=== PATIENT | male | born 1985 | race Caucasian/White ===

== ENCOUNTER 2019-11-07 23:38 | Inpatient (IN) | payer MEDICAID, OTHER ==
--- NOTE | 2019-11-08 00:20 | ED ---
Psych HPI - General Chief Complaint: Psychiatric Symptoms Stated Complaint: Mental Health Time Seen by Provider: 11/07/19 23:52 Source: patient, police Mode of arrival: ambulatory - History of Present Illness Initial Comments: Jass Arevalo is a 34-year-old male with a history of depression for which she has been on Effexor, gabapentin, and Remeron at night. Patient states that all of his medications were in the vehicle belonging to a woman named Pat who has had a falling out with so he doesn't have access to his medications. He is been drinking alcohol this evening and states that he hates himself and wants to . - Related Data Previous Rx's Medication Instructions Recorded Atorvastatin [Lipitor] 40 mg PO HS #30 tab 11/08/19 Allergies Allergy/AdvReac Type Severity Reaction Status Date / Time No Known Allergies Allergy Verified 11/07/19 23:46 Review of Systems ROS Statement: Those systems with pertinent positive or pertinent negative responses have been documented in the HPI. ROS Other: All systems not noted in ROS Statement are negative. Past Medical History Past Medical History: No Reported History History of Any Multi-Drug Resistant Organisms: None Reported Past Surgical History: Orthopedic Surgery Additional Past Surgical History / Comment(s): lt kidney removed Past Psychological History: Anxiety, Depression Smoking Status: Current every day smoker Past Alcohol Use History: Occasional Past Drug Use History: None Reported - Past Family History Father Additional Family Medical History / Comment(s): MS Mother Additional Family Medical History / Comment(s): Bipolar disorder General Exam - General Exam Comments Initial Comments: Physical Exam GENERAL: Patient is well-developed and well-nourished. Patient is nontoxic and well-hydrated and is in no distress. HENT: Normocephalic, Atraumatic. EYES: PERRL, EOMI PULMONARY: Unlabored respirations. CARDIOVASCULAR: RRR Warm and well perfused extremities ABDOMEN: Non-distended SKIN: No rashes or bruising : Deferred NEUROLOGIC: Alert and oriented Normal speech Normal gait MUSCULOSKELETAL: Moving all extremities with no apparent injury PSYCHIATRIC: Tearful, crying, suicidal thoughts, depression Limitations: no limitations Course Vital Signs 11/07/19 23:41 Temperature 97.8 F Pulse Rate 108 H Respiratory 20 Rate Blood Pressure 113/73 O2 Sat by Pulse 99 Oximetry Medical Decision Making - Medical Decision Making She was seen and evaluated upon arrival in the emergency department. Patient is crying and tearful, he does admit to being intoxicated but states that he felt he eats himself and he wants to . Upon sobriety the patient was evaluated by EPS and was willing to sign in voluntarily for psychiatric evaluation. - Lab Data Result diagrams: 11/08/19 09:10 11/08/19 09:10 Lab Results 11/07/19 Range/Units 23:55 Urine Opiates Screen Not Detected (NotDetected) Ur Oxycodone Screen Not Detected (NotDetected) Urine Methadone Screen Not Detected (NotDetected) Ur Propoxyphene Screen Not Detected (NotDetected) Ur Barbiturates Screen Not Detected (NotDetected) U Tricyclic Antidepress Not Detected (NotDetected) Ur Phencyclidine Scrn Not Detected (NotDetected) Ur Amphetamines Screen Not Detected (NotDetected) U Methamphetamines Scrn Not Detected (NotDetected) U Benzodiazepines Scrn Not Detected (NotDetected) Urine Cocaine Screen Not Detected (NotDetected) U Marijuana (THC) Screen Not Detected (NotDetected) Disposition Clinical Impression: Depression, Suicidal ideation Disposition: TRANSFER TO PSYCH HOSP/UNIT Condition: Stable Is patient prescribed a controlled substance at d/c from ED?: No
[2019-11-08 00:49] LABS: Amphetamine Screen,Urine Not Detected (NotDetected); Barbiturate Screen,Urine Not Detected (NotDetected); Benzodiazepines Screen,Urine Not Detected (NotDetected); Cocaine Screen,Urine Not Detected (NotDetected); Methadone Screen, Urine Not Detected (NotDetected); Opiate Screen,Urine Not Detected (NotDetected); Oxycodone Screen, Urine Not Detected (NotDetected); Phencyclidine Screen,Urine Not Detected (NotDetected); Tricyclic Antidepressant,Urine Not Detected (NotDetected); Urn Cannabinoid Scrn Not Detected (NotDetected)
[2019-11-08] MEDS ORDERED: LORazepam 1 MG TAB PO PRN (05:58)
[2019-11-08] MEDS ORDERED: ACETAMINOPHEN TAB 325 MG TAB PO PRN (05:58)
[2019-11-08] MEDS ORDERED: MAGNESIUM HYDROXIDE 2,400 MG/10 ML CUP PO PRN (05:58)
[2019-11-08] MEDS: NICOTINE 14MG/24HR PATCH TRANSDERM SCH (08:21)
[2019-11-08] MEDS: VENLAFAXINE HCL 50 MG TAB PO SCH (08:21)
[2019-11-08] MEDS ORDERED: ZIPRASIDONE 20 MG VIAL IM PRN (09:00)
[2019-11-08 09:46] LABS: Basophils # (A) 0.1 k/uL (0-0.2); Basophils % (A) 1 %; Eosinophils # (A) 0.2 k/uL (0-0.7); Eosinophils % (A) 3 %; HGB 15.5 gm/dL (13.0-17.5); Lymphocytes # (A) 2.3 k/uL (1.0-4.8); Lymphocytes % (A) 30 %; MCH 30.2 pg (25.0-35.0); MCHC 33.1 g/dL (31.0-37.0); MCV 91.2 fL (80.0-100.0); Mean Platelet Volume 8.3; Monocytes # (A) 0.4 k/uL (0-1.0); Monocytes % (A) 6 %; Neutrophils # (A) 4.3 k/uL (1.3-7.7); Neutrophils % (A) 58 %; Platelet Count 224 k/uL (150-450); RBC 5.16 m/uL (4.30-5.90); RDW 12.9 % (11.5-15.5); WBC 7.5 k/uL (3.8-10.6)
[2019-11-08 10:06] LABS: ALT 42 U/L (4-49); AST 33 U/L (17-59); African American GFR (CKD) >90 (>60 ml/min/1.73 sqM); Albumin 4.8 g/dL (3.5-5.0); Alkaline Phosphatase 86 U/L (38-126); Anion Gap 13 mmol/L; Bilirubin, Delta 0.3 mg/dL (0.0-0.2); Bilirubin,Unconjugated 0.3 mg/dL (0.0-1.1); Blood Urea Nitrogen 16 mg/dL (9-20); Calcium 9.6 mg/dL (8.4-10.2); Carbon Dioxide 24 mmol/L (22-30); Chloride 106 mmol/L (98-107); Cholesterol 216 mg/dL (<200); Glucose 76 mg/dL (74-99); HDL Cholesterol 34 mg/dL (40-60); Non-African American GFR(CKD) 79 (>60 ml/min/1.73 sqM); Potassium 4.7 mmol/L (3.5-5.1); Sodium 143 mmol/L (137-145); Total Bilirubin 0.6 mg/dL (0.2-1.3); Total Protein 8.2 g/dL (6.3-8.2)
[2019-11-08 10:13] LABS: Triglycerides 576 mg/dL (<150)
--- NOTE | 2019-11-08 14:21 | P.HP ---
Psychiatric H&P - . H&P Date: 11/08/19 History & Physical: IDENTIFYING DATA: The patient is a 34-year-old homeless male who presented to psychiatric unit voluntarily with complaints of depression and suicidal ideation. He presented to the ED with BAT of 0.154. He complained to the EPS nurse that he had "reached a point program where my meds don'to work and I don't have access to them tonight." HISTORY OF PRESENT ILLNESS: I reviewed the medical record and interviewed the patient. He described a six-year history of alcohol and cocaine use problems, homelessness and multiple admissions to crisis residential, psychiatric emergency rooms, psychiatric hospitals, residential substance abuse treatment programs and [facility]. He is not a resident of [place] or [facility]. He called a friend after he left the [facility] in [facility]. He complained that the program referred him to a homeless program [facility]. He did not want to go to [facility] because he "heard" that was a "bad program." His friend drove from [facility] to [place]. He could not stay at her apartment but accompanied her to work. On the way back from her job he began cursing on the bus and was ordered off by the business initiatives manager. He has no other friends or acquaintances in [facility]. He bought alcohol, became intoxicated and called emergency services. This is a chronicle of his recent admissions to psychiatric, [facility], crisis residential, residential substance abuse and crisis emergency services. He was in [facility] for 2 weeks. [facility] referred him to this program after he left a [facility] superior ([facility]) after one week because he could not afford to pay the $500 per month room and board. [facility] referred him to [facility] after completing their 28 day program. [facility] referred him to [facility]. [facility] inpatient psychiatric unit referred him to [facility]. He was admitted to [facility] after he was dismissed from [facility] program in [facility] because he relapsed to alcohol. [facility] in turn referred him to [facility] after completing the 28 day program. He alleged that he has had intermittent thoughts of suicide over the last 3 years. He alleged that he has been continuously depressed during that same period. He has had no income or stable housing for the last 6 years. 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 He has outstanding warrants that prevented him from living with his brother who is a medical corps officer. He complained of depression, hopelessness and helplessness. He only feels "normal" when he is intoxicated. He talked about wanting to find a medication that can make him feel like he does when he is intoxicated. He denied daily use recent use of cocaine and denied use of other drugs to get high, help him sleep or changes mood. He denied experiencing clear periods of elevated mood or sustained irritability consistent with raji or hypomania. He denied such psychotic symptoms as ideas reference, thought insertion, thought broadcasting etc. He denied currently experiencing auditory, visual or olfactory hallucinations. PAST PSYCHIATRIC HISTORY: He has had (at least) 6 psychiatric hospitalizations most recent was at [facility] [place] [facility]. Although he has been referred for outpatient services multiple times he is never In outpatient at the health appointment. He attempted suicide twice; once by overdose of heroin and another by overdose of prescription medications. PAST MEDICAL HISTORY: He denied history of chronic medical problems ALLERGIES: Known drug ALLERGIES SUBSTANCE USE HISTORY: He began drinking when he was in teen years. His alcohol use became a problem about 6 years ago. He's been in approximately 6 residential substance abuse treatment programs and multiple community transitional programs and three-quarter houses. He is been dismissed from residential programs due to continued alcohol use. He has also has a history of cocaine use that was a major problem about 3 years ago. FAMILY PSYCHIATRIC/SUBSTANCE USE HISTORY: His sister and mother have history of a bipolar illness LEGAL HISTORY: He has several outstanding warrants. He's been in retirement multiple times but has never been in [facility] SOCIAL HISTORY: He was born and raised in [place] to an intact family. His parents when he was 15 years old. Both his parents worked and he was raised by his extended family. He has 1 brother and sister. His brother is a medical corps officer and his sister is a nurse. He had no contact with his father after his parents . He last worked 6 years ago at [employer]. He has no income and no stable housing. He is single and has no children. MENTAL STATUS EXAM: He presented as a malodorous but casually groomed simpson 34-year-old male who made eye contact and attended to interview. He had a depressed facial expression. He is alert and oriented to person, place and time. He showed psychomotor retardation but no abnormal movements. Her speech was spontaneous with decreased rate, rhythm and volume. He had no articulation difficulties. His affect was depressed and not reactive. He describes suicidal ideation or wishes but denied homicidal ideation. He feels hopeless, helpless and worthless. He ruminated about his chronic social problems as well as chronic use of alcohol. He did not express ideas reference, paranoid ideation or delusional thoughts. His thinking was abstract and his associations were coherent and logical. He denied hallucinations and did not appear to be responding to internal stimuli. Global impression of intellect is average. He is aware of his mental health and substance abuse needs but feels helpless in his recovery. STRENGTHS: Good physical health, knowledge of community resources WEAKNESSES: Chronic homelessness, lack of income, chronic substance abuse problems IMPRESSION: He has a 34-year-old single male who has history of alcohol and cocaine use problems. She is chronically homeless and complaints of persistent depression and recurrent suicidal ideation. He is had multiple psychiatric admissions, residential substance abuse admissions and admissions to multiple homeless programs, residential substance abuse treatment programs, community based substance abuse treatment programs and crisis psychiatric programs. He does not follow through with outpatient treatment and relies on these various programs for housing, recovery needs and psychiatric care. He should be treated inpatient basis with combination of multimodal therapy and psychopharmacology. PRINCIPLE DIAGNOSIS: Major depressive disorder recurrent without psychotic features, alcohol use disorder severe, cocaine use disorder and early remission, chronic homelessness, lack of income RECOMMENDATION: Continue inpatient hospitalization, suicide precautions, consult medicine for initial physical exam and medical history. oncology social worker completed initial psychosocial assessment coordinate discharge and aftercare. Resume his outpatient psychotropic medications including Abilify 20 mg at bedtime, Remeron 30 mg at bedtime and Effexor XR 150 mg daily. Lorazepam and Geodon when necessary for anxiety or agitation. Encourage participation in therapeutic groups and activities. Evaluate clinical status response to treatment daily basis. Allergies Allergy/AdvReac Type Severity Reaction Status Date / Time No Known Allergies Allergy Verified 11/07/19 23:46 Vital Signs Temp 96.4 F L 11/08/19 06:45 Pulse 98 11/08/19 06:45 Resp 16 11/08/19 06:45 BP 124/73 11/08/19 06:45 Pulse Ox 97 11/08/19 06:45 Intake & Output 11/07/19 11/08/19 11/08/19 18:59 06:59 18:59 Weight 86.863 kg Laboratory Last Values Urine Opiates Screen Not Detected (NotDetected) 11/07/19 23:55 Ur Oxycodone Screen Not Detected (NotDetected) 11/07/19 23:55 Urine Methadone Screen Not Detected (NotDetected) 11/07/19 23:55 Ur Propoxyphene Screen Not Detected (NotDetected) 11/07/19 23:55 Ur Barbiturates Screen Not Detected (NotDetected) 11/07/19 23:55 U Tricyclic Antidepress Not Detected (NotDetected) 11/07/19 23:55 Ur Phencyclidine Scrn Not Detected (NotDetected) 11/07/19 23:55 Ur Amphetamines Screen Not Detected (NotDetected) 11/07/19 23:55 U Methamphetamines Scrn Not Detected (NotDetected) 11/07/19 23:55 U Benzodiazepines Scrn Not Detected (NotDetected) 11/07/19 23:55 Urine Cocaine Screen Not Detected (NotDetected) 11/07/19 23:55 U Marijuana (THC) Screen Not Detected (NotDetected) 11/07/19 23:55 11/08/19 09:12 11/08/19 14:14
[2019-11-08] MEDS ORDERED: LORATADINE 10 MG TAB PO PRN (16:08)
[2019-11-08] MEDS ORDERED: BENZOCAINE/MENTHOL LOZENG 1 EACH LOZENGE MUCOUS MEM PRN (16:08)
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
[2019-11-08] MEDS: ATORVASTATIN 40 MG TAB PO SCH (20:19)
[2019-11-08] MEDS: hydrOXYzine PAMOATE 25 MG CAP PO SCH (20:19)
[2019-11-08] MEDS: MIRTAZAPINE 15 MG TAB PO SCH (20:19)
[2019-11-08 22:05] LABS: Hemoglobin A1C 5.2 % (4.0-6.0)
[2019-11-09] MEDS: VENLAFAXINE HCL 50 MG TAB PO SCH (08:20)
[2019-11-09] MEDS: NICOTINE 14MG/24HR PATCH TRANSDERM SCH (08:20)
--- NOTE | 2019-11-09 13:14 | P.PN ---
Progress Note - Text Progress Note Date: 11/09/19 Interval history: Patient was seen after eating his lunch was agreeable to speak to movie writer. The patient was directable today and states that his anxiety has been elevated on the unit. He states that he is usually taking Vistaril more frequently and not just at night. Patient claims that his mood has mildly improved since yesterday. He states that he feels safe on the unit however does have fleeting thoughts of suicide attempts. He claims that he will be going to one of the groups this afternoon. He claims that he slept poorly last night. At this time patient denies any homicidal ideations intent or plan. Denies any Auditory or visual hallucinations. Patient denies any side effects from the medications and has been compliant with meds. Mental status exam: General Appearance: Patient appears to be stated age is alert, pleasant, and cooperative. Improving hygiene and grooming. Behavior: No agitated behavior. Patient is calm and directable Speech: Patient's speech is fluent and nonpressured. Mood/Affect: Mood is improving mildly, affect is congruent and constricted. Suicidality/Homicidality: Patient denies having any homicidal ideation intent or plan. Has some fleeting thoughts of suicide, no intent or plan. Perceptions: Patient denies any auditory or visual hallucinations. Though content/process: There is no evidence of any delusional thought content and thought process is linear and goal-directed. [place]. Memory and concentration: AOX3, grossly intact for the purposes of this session Judgment and insight: improving mildly. Assessment/Plan: Continue with current diagnosis. Patient continues to meet criteria for inpatient psychiatric admission for symptom stabilization and safety.Patient will be maintained on current psychotropic medication regimen with the exception of Vistaril being added every 6 hours when necessary for anxiety. Patient also asked to have his Wellbutrin switched to the XR version. Monitor for medication compliance and for any psychotropic medication side effects. Will continue to monitor ongoing response to treatment. Vital signs reviewed.
[2019-11-09] MEDS: hydrOXYzine PAMOATE 25 MG CAP PO PRN (14:38)
[2019-11-09] MEDS: ATORVASTATIN 40 MG TAB PO SCH (20:18)
[2019-11-09] MEDS: MIRTAZAPINE 15 MG TAB PO SCH (20:18)
[2019-11-09] MEDS: hydrOXYzine PAMOATE 25 MG CAP PO SCH (20:19)
[2019-11-10] MEDS: NICOTINE 14MG/24HR PATCH TRANSDERM SCH (08:11)
[2019-11-10] MEDS: VENLAFAXINE HCL ER 150 MG CAP PO SCH (08:11)
--- NOTE | 2019-11-10 10:49 | P.PN ---
Progress Note - Text Progress Note Date: 11/10/19 Interval history: Patient was seen laying down in his bed after group and was directable and agreeable to seek greater in the office. The patient was continues to state that his anxiety is high and the Vistaril only mildly helped and claims that he has always been on Neurontin for his anxiety and was asking to be restarted on it. Patient claims that his mood has mildly improved since yesterday however still has some fleeting thoughts of suicide at times however no intent or plan. He states that he feels safe on the unit and has been trying to participate in groups as best as he can. Patient asked about the Abilify Maintenna injection and whether he can have that prior to discharge. He claims that he slept poorly last night and had some nightmares. At this time patient denies any homicidal ideations intent or plan. Denies any Auditory or visual hallucinations. Patient denies any side effects from the medications and has been compliant with meds. Mental status exam: General Appearance: Patient appears to be stated age is alert, pleasant, and cooperative. Improving hygiene and grooming. Behavior: No agitated behavior. Patient is calm and directable Speech: Patient's speech is fluent and nonpressured. Mood/Affect: Mood is improving mildly, affect is congruent and constricted. Suicidality/Homicidality: Patient denies having any homicidal ideation intent or plan. Has some fleeting thoughts of suicide, no intent or plan. Perceptions: Patient denies any auditory or visual hallucinations. Though content/process: There is no evidence of any delusional thought content and thought process is linear and goal-directed. [place]. Memory and concentration: AOX3, grossly intact for the purposes of this session Judgment and insight: improving mildly. Assessment/Plan: Continue with current diagnosis. Patient continues to meet criteria for inpatient psychiatric admission for symptom stabilization and safety.Patient will be maintained on current psychotropic medication regimen with the exception of Remeron which was increased to 45 mg daily at bedtime for mood/insomnia. Patient was also started on gabapentin 200 mg 3 times a day for anxiety. Will consider giving Abilify maintain a long-acting injection prior to discharge. Monitor for medication compliance and for any psychotropic medication side effects. Will continue to monitor ongoing response to treatment. Vital signs reviewed.
[2019-11-10] MEDS: GABAPENTIN 100 MG CAP PO SCH ×3 (11:09→20:30)
[2019-11-10] MEDS: hydrOXYzine PAMOATE 25 MG CAP PO SCH (20:28)
[2019-11-10] MEDS: ATORVASTATIN 40 MG TAB PO SCH (20:28)
[2019-11-10] MEDS: MIRTAZAPINE 45 MG TABLET PO SCH (20:29)
[2019-11-11] MEDS: NICOTINE 14MG/24HR PATCH TRANSDERM SCH (08:43)
[2019-11-11] MEDS: GABAPENTIN 100 MG CAP PO SCH (08:44)
[2019-11-11] MEDS: VENLAFAXINE HCL ER 150 MG CAP PO SCH (08:44)
--- NOTE | 2019-11-11 10:58 | P.PN ---
Subjective Progress Note Date: 11/11/19 The patient seen in the chart was reviewed. The case was discussed with the team on the unit. The patient continues to report slow improvement in his mood and anxiety. The patient reports some improvement in his sleep and appetite. He reports he slept about 5 hours last night but complained of early a.m. awakening at 2 AM. The patient denies any auditory or visual hallucinations at this time. He denies any active suicidal or homicidal ideations at this time. The patient reports compliance with the medications and has been tolerating the medications without any side effects. Objective - Vital Signs Vital signs: Vital Signs Temp 97.6 F 11/11/19 05:20 Pulse 103 H 11/11/19 05:20 Resp 16 11/11/19 05:20 BP 137/77 11/11/19 05:20 Pulse Ox 97 11/08/19 06:45 Intake & Output 11/10/19 11/11/19 11/11/19 18:59 06:59 18:59 Weight 87.6 kg - Exam Mental status exam: General Appearance: Patient appears to be stated age is alert, pleasant, and cooperative. Behavior: No agitated behavior. Patient is calm and directable Speech: Patient's speech is fluent and nonpressured. Mood/Affect: Mood is improving mildly, affect is congruent and constricted. Suicidality/Homicidality: Patient denies having any homicidal ideation intent or plan. Has some fleeting thoughts of suicide, no intent or plan. Perceptions: Patient denies any auditory or visual hallucinations. Though content/process: There is no evidence of any delusional thought content and thought process is linear and goal-directed. [place]. Memory and concentration: AOX3, grossly intact for the purposes of this session Judgment and insight: improving mildly. - Labs CBC & Chem 7: 11/08/19 09:10 11/08/19 09:10 Assessment and Plan Assessment: Major depressive disorder recurrent with suicidal ideations Plan: Assessment/Plan: Continue with current diagnosis. Patient continues to meet criteria for inpatient psychiatric admission for symptom stabilization and safety. Continue Remeron 45 mg daily at bedtime for mood/insomnia. Will increase gabapentin 300 mg 3 times a day for anxiety. Will consider giving Abilify maintain a long-acting injection prior to discharge. Monitor for medication compliance and for any psychotropic medication side effects. Will continue to monitor ongoing response to treatment. Vital signs reviewed.
[2019-11-11] MEDS: GABAPENTIN 300 MG CAP PO SCH ×2 (15:53→20:16)
[2019-11-11] MEDS: hydrOXYzine PAMOATE 25 MG CAP PO SCH (20:16)
[2019-11-11] MEDS: ATORVASTATIN 40 MG TAB PO SCH (20:16)
[2019-11-11] MEDS: MIRTAZAPINE 45 MG TABLET PO SCH (20:16)
[2019-11-12] MEDS: NICOTINE 14MG/24HR PATCH TRANSDERM SCH (08:36)
[2019-11-12] MEDS: VENLAFAXINE HCL ER 150 MG CAP PO SCH (08:36)
[2019-11-12] MEDS: GABAPENTIN 300 MG CAP PO SCH ×3 (08:36→21:01)
--- NOTE | 2019-11-12 11:33 | P.PN ---
Subjective Progress Note Date: 11/12/19 The patient seen in the chart was reviewed. The case was discussed with the team on the unit. The patient reports improved mood and functioning. He reports his depression is improving slowly and anxiety is under control. He reports fair sleep and appetite and denies any nightmares. The patient shows m otivation towards recovery in treatment. The patient denies any auditory or visual hallucinations at this time. He denies any active suicidal or homicidal ideations at this time. The patient reports compliance with the medications and has been tolerating the medications without any side effects. Objective - Vital Signs Vital signs: Vital Signs Temp 98.0 F 11/12/19 06:09 Pulse 97 11/12/19 06:09 Resp 16 11/12/19 06:09 BP 120/65 11/12/19 06:09 Pulse Ox 97 11/08/19 06:45 - Exam Mental status exam: General Appearance: Patient appears to be stated age is alert, pleasant, and cooperative. Behavior: No agitated behavior. Patient is calm and directable Speech: Patient's speech is fluent and nonpressured. Mood/Affect: Mood is improving slowly, affect is congruent and constricted. Suicidality/Homicidality: Patient denies having any homicidal ideation intent or plan. Has some fleeting thoughts of suicide, no intent or plan. Perceptions: Patient denies any auditory or visual hallucinations. Though content/process: There is no evidence of any delusional thought content and thought process is linear and goal-directed. [place]. Memory and concentration: AOX3, grossly intact for the purposes of this session Judgment and insight: improving mildly. - Labs CBC & Chem 7: 11/08/19 09:10 11/08/19 09:10 Assessment and Plan Assessment: Major depressive disorder recurrent with suicidal ideations Plan: Assessment/Plan: Continue with current diagnosis. Patient continues to meet criteria for inpatient psychiatric admission for symptom stabilization and safety. Continue Remeron 45 mg daily at bedtime for mood/insomnia. Continue gabapentin 300 mg 3 times a day for anxiety. Will consider giving Abilify maintenna a long-acting injection prior to discharge. Monitor for medication compliance and for any psychotropic medication side effects. Will continue to monitor ongoing response to treatment. Vital signs reviewed. Discharge plans are in progress.
[2019-11-12] MEDS: MAG HYDROX/AL HYDROX/SIMETH 30 ML CUP PO PRN (12:47)
[2019-11-12] MEDS: hydrOXYzine PAMOATE 25 MG CAP PO PRN (14:58)
[2019-11-12] MEDS: hydrOXYzine PAMOATE 25 MG CAP PO SCH (21:01)
[2019-11-12] MEDS: ATORVASTATIN 40 MG TAB PO SCH (21:01)
[2019-11-12] MEDS: MIRTAZAPINE 45 MG TABLET PO SCH (21:01)
[2019-11-13 02:17] VITALS: BP 126/72; PULSE 99; RESP 14; TEMP 97.4
[2019-11-13] MEDS: GABAPENTIN 300 MG CAP PO SCH ×2 (07:57→15:46)
[2019-11-13] MEDS: NICOTINE 14MG/24HR PATCH TRANSDERM SCH (07:57)
[2019-11-13] MEDS: VENLAFAXINE HCL ER 150 MG CAP PO SCH (07:57)
--- NOTE | 2019-11-13 11:37 | P.PN ---
Subjective Progress Note Date: 11/13/19 The patient seen and the chart was reviewed. The case was discussed with the staff on the unit. The patient reports feeling better and reports improved sleep and appetite. He continues to report feeling anxious but denies any panic attacks. The patient denies any crying spells. He reports good appetite. The patient has been actively working on his discharge plans. The patient reports compliance with his treatment and denies any side effects on the medications. The patient denies any auditory or visual hallucinations at this time. The patient denies any active suicidal or homicidal ideations at this time the patient denies any paranoia. Objective - Vital Signs Vital signs: Vital Signs Temp 97.4 F L 11/13/19 01:55 Pulse 99 11/13/19 01:55 Resp 14 11/13/19 01:55 BP 126/72 11/13/19 01:55 Pulse Ox 97 11/08/19 06:45 - Exam Mental status exam: General Appearance: Patient appears to be stated age is alert, pleasant, and cooperative. Behavior: No agitated behavior. Patient is calm and directable Speech: Patient's speech is fluent and nonpressured. Mood/Affect: Mood is improving slowly, affect is congruent and constricted. Suicidality/Homicidality: Patient denies having any homicidal ideation intent or plan. Has some fleeting thoughts of suicide, no intent or plan. Perceptions: Patient denies any auditory or visual hallucinations. Though content/process: There is no evidence of any delusional thought content and thought process is linear and goal-directed. [place]. Memory and concentration: AOX3, grossly intact for the purposes of this session Judgment and insight: improving mildly. - Labs CBC & Chem 7: 11/08/19 09:10 11/08/19 09:10 Assessment and Plan Assessment: Major depressive disorder recurrent with suicidal ideations Plan: Assessment/Plan: Continue with current diagnosis. Plan to administer Abilify Maintenna 400 mg IM today and discharge home with plans to follow up [facility]. Continue Remeron 45 mg daily at bedtime for mood/insomnia. Continue gabapentin 300 mg 3 times a day for anxiety. Will consider giving Abilify maintenna a long-acting injection prior to discharge. Monitor for medication compliance and for any psychotropic medication side effects.
--- NOTE | 2019-11-13 11:53 | P.DS ---
Providers Date of admission: 11/08/19 05:41 Attending physician: Ayanna Garza MD Consults: 11/08/19 05:58 Consult Physician Routine Consulting Provider: Paul Physician Consult Reason/Comments: H and P Do you want consulting provider notified?: Yes Primary care physician: Stated None Hospital Course: IDENTIFYING DATA: The patient is a 34-year-old homeless male who presented to psychiatric unit voluntarily with complaints of depression and suicidal ideation. He presented to the ED with BAT of 0.154. He complained to the EPS nurse that he had "reached a point program where my meds don'to work and I don't have access to them tonight." HISTORY OF PRESENT ILLNESS: He described a six-year history of alcohol and cocaine use problems, homelessness and multiple admissions to crisis residential, psychiatric emergency rooms, psychiatric hospitals, residential substance abuse treatment programs and three-quarter homes. He is not a resident of [place] or [facility]. He called a friend after he left the [facility] in [facility]. He complained that the program referred him to a homeless program called [facility]. He did not want to go to [facility] because he "heard" that was a "bad program." His friend drove from [facility] to [place]. He could not stay at her apartment but accompanied her to work. On the way back from her job he began cursing on the bus and was ordered off by the rodbuster. He has no other friends or acquaintances in [facility]. He bought alcohol, became intoxicated and called emergency services. This is a chronicle of his recent admissions to psychiatric, three-quarter house, crisis residential, residential substance abuse and crisis emergency services. He was in [facility] for 2 weeks. [facility] referred him to this program after he left a three-quarter house ([facility]) after one week because he could not afford to pay the $500 per month room and board. [facility] referred him to [facility] after completing their 28 day program. [facility] referred him to [facility]. [facility] inpatient psychiatric unit referred him to [facility]. He was admitted to [facility] after he was dismissed from [facility] program in [facility] because he relapsed to alcohol. [facility] in turn referred him to [facility] after completing the 28 day program. He alleged that he has had intermittent thoughts of suicide over the last 3 years. He alleged that he has been continuously depressed during that same period. He has had no income or stable housing for the last 6 years. 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 He has outstanding warrants that prevented him from living with his brother who is a armed security officer. He complained of depression, hopelessness and helplessness. He only feels "normal" when he is intoxicated. He talked about wanting to find a medication that can make him feel like he does when he is intoxicated. He denied daily use recent use of cocaine and denied use of other drugs to get high, help him sleep or changes mood. He denied experiencing clear periods of elevated mood or sustained irritability consistent with raji or hypomania. He denied such psychotic symptoms as ideas reference, thought insertion, thought broadcasting etc. He denied currently experiencing auditory, visual or olfactory hallucinations. PAST PSYCHIATRIC HISTORY: He has had (at least) 6 psychiatric hospitalizations most recent was at [facility] in [facility]. Although he has been referred for outpatient services multiple times he is never In outpatient at the health appointment. He attempted suicide twice; once by overdose of heroin and another by overdose of prescription medications. PAST MEDICAL HISTORY: He denied history of chronic medical problems ALLERGIES: Known drug ALLERGIES SUBSTANCE USE HISTORY: He began drinking when he was in teen years. His alcohol use became a problem about 6 years ago. He's been in approximately 6 residential substance abuse treatment programs and multiple community transitional programs and three-quarter houses. He is been dismissed from residential programs due to continued alcohol use. He has also has a history of cocaine use that was a major problem about 3 years ago. FAMILY PSYCHIATRIC/SUBSTANCE USE HISTORY: His sister and mother have history of a bipolar illness LEGAL HISTORY: He has several outstanding warrants. He's been in [facility] multiple times but has never been in half-way SOCIAL HISTORY: He was born and raised in [facility] [place] [facility] [place] to an intact family. His parents when he was 15 years old. Both his parents worked and he was raised by his extended family. He has 1 brother and sister. His brother is a armed security officer and his sister is a nurse. He had no contact with his father after his parents . He last worked 6 years ago at [employer]. He has no income and no stable housing. He is single and has no children. MENTAL STATUS EXAM: He presented as a malodorous but casually groomed simpson [age]-year-old male who made eye contact and attended to interview. He had a depressed facial expression. He is alert and oriented to person, place and time. He showed psychomotor retardation but no abnormal movements. Her speech was spontaneous with decreased rate, rhythm and volume. He had no articulation difficulties. His affect was depressed and not reactive. He describes suicidal ideation or wishes but denied homicidal ideation. He feels hopeless, helpless and worthless. He ruminated about his chronic social problems as well as chronic use of alcohol. He did not express ideas reference, paranoid ideation or delusional thoughts. His thinking was abstract and his associations were coherent and logical. He denied hallucinations and did not appear to be responding to internal stimuli. Global impression of intellect is average. He is aware of his mental health and substance abuse needs but feels helpless in his recovery. STRENGTHS: Good physical health, knowledge of community resources WEAKNESSES: Chronic homelessness, lack of income, chronic substance abuse problems The patient was admitted to the mental health unit. He was placed on suicidal precautions and 15 minutes checks. He was seen by internal medicine for an initial physical exam and medical history. mud jack nozzle worker completed the psychosocial assessment uncoordinated discharge and aftercare. He was restarted on Abilify 20 mg by mouth daily at bedtime, Remeron 30 mg by mouth daily at bedtime, and Effexor XR 150 mg by mouth daily. Lorazepam and Geodon were ordered as needed. The patient was scheduled to attend and participate in milieu therapy on the unit. The patient was monitored closely on the unit for his signs and symptoms getting worse or improvement. He was also monitored on daily basis for any possible side effects on the medications. The patient tolerated the medications without any side effects. He continued to report feeling depressed and reported that he hated himself and wanted to . The patient was started on Vistaril 25 mg by mouth 3 times a day when necessary for anxiety. The patient continued to report feeling anxious and depressed and reported that the medications were only helping him mildly. Patient's Remeron was increased from 30 mg to 45 mg by mouth daily at bedtime. The patient started reporting some improvement in his mood and functioning. Discussed Abilify maintain him for long-term management of his depressive symptoms with the patient. The patient was agreeable. The patient was started on Abilify and the dose was gradually increased to 20 mg by mouth 2 daily. The patient became a little more active on the unit and started attending and participating in milieu therapy. Neurontin was increased to 300 mg by mouth 3 times a day. The patient was tolerating the changes in the medications without any side effects. Discharge plans were initiated. The patient participated actively in discharge planning. Patient was given Abilify maintain a 400 mg IM on that he tolerated without any side effects. The patient was stabilized and was discharged home on 11/13/2027 on following medications. Abilify 20 mg by mouth daily. Remeron 45 mg by mouth daily at bedtime. Neurontin 300 mg by mouth 3 times a day. Abilify maintenna 400 mg IM every monthly. Vistaril 25 mg by mouth every 6 hours when necessary. Effexor XR 150 mg by mouth daily. The patient was scheduled to go for an intake at [facility] at after discharge. The patient's condition was stable at the time of discharge. Plan - Discharge Summary Discharge Rx Participant: No New Discharge Prescriptions: New Atorvastatin [Lipitor] 40 mg PO HS #30 tab ARIPiprazole [Abilify] 20 mg PO HS #30 tab ARIPiprazole IM SYRINGE [Abilify Maintena Syringe] 400 mg IM ONCE #1 kit Venlafaxine HCl ER [Effexor XR] 150 mg PO DAILY #30 cap.er.24h Nicotine 14Mg/24Hr Patch [Habitrol] 1 patch TRANSDERM DAILY #14 patch Gabapentin [Neurontin] 300 mg PO TID #30 cap Mirtazapine [Remeron] 45 mg PO HS #30 tablet hydrOXYzine PAMOATE [Vistaril] 25 mg PO Q6HR PRN #30 cap PRN Reason: Anxiety Discharge Medication List Atorvastatin [Lipitor] 40 mg PO HS #30 tab 11/08/19 [Rx] ARIPiprazole IM SYRINGE [Abilify Maintena Syringe] 400 mg IM ONCE #1 kit 11/13/19 [Rx] ARIPiprazole [Abilify] 20 mg PO HS #30 tab 11/13/19 [Rx] Gabapentin [Neurontin] 300 mg PO TID #30 cap 11/13/19 [Rx] Mirtazapine [Remeron] 45 mg PO HS #30 tablet 11/13/19 [Rx] Nicotine 14Mg/24Hr Patch [Habitrol] 1 patch TRANSDERM DAILY #14 patch 11/13/19 [Rx] Venlafaxine HCl ER [Effexor XR] 150 mg PO DAILY #30 cap.er.24h 11/13/19 [Rx] hydrOXYzine PAMOATE [Vistaril] 25 mg PO Q6HR PRN #30 cap 11/13/19 [Rx] Follow up Appointment(s)/Referral(s): Nonstaff,Physician [REFERRING] - 1-2 days Giacomo Pacheco [STAFF PHYSICIAN] - 1 Week Activity/Diet/Wound Care/Special Instructions: Activity and diet as tolerated. Avoid the use of street drugs and alcohol. Take all medications as prescribed. When you are in need of refills on your med ications please contact your medical provider and/or outpatient psychiatrist to have this done. Please go to scheduled outpatient appointment for aftercare treatment. If symptoms return or become worse, call the crisis line at and/or go to the nearest emergency room for evaluation.
[2019-11-13] MEDS ORDERED: ARIPiprazole IM SYRINGE 400 MG (NO CHARGE) IM ONE (12:00)
[2019-11-13] MEDS: MAG HYDROX/AL HYDROX/SIMETH 30 ML CUP PO PRN (12:06)
== END 2019-11-13 16:45 | disposition home or self-care (01) | DRG 885 ==
LOC: EC 23:38 → 3MHU 11-08 05:41
PROVIDERS: ADMIT Psychiatry & Neurology Psychiatry; ATTEND Psychiatry & Neurology Psychiatry
DX: F33.9 Major depressive disorder, recurrent, unspecified (principal); R45.851 Suicidal ideations; G47.00 Insomnia, unspecified; F41.9 Anxiety disorder, unspecified; F10.10 Alcohol abuse, uncomplicated; F14.10 Cocaine abuse, uncomplicated; Z91.5 Personal history of self-harm; F17.210 Nicotine dependence, cigarettes, uncomplicated; Z59.0 Homelessness; Z79.899 Other long term (current) drug therapy; Z56.0 Unemployment, unspecified; Z81.8 Family history of other mental and behavioral disorders; Z82.0 Family history of epilepsy and other diseases of the nervous system; Z90.5 Acquired absence of kidney; Z65.3 Problems related to other legal circumstances; J06.9 Acute upper respiratory infection, unspecified; Z86.73 Personal history of transient ischemic attack (TIA), and cerebral infarction without residual deficits
CPT/HCPCS: 80053; 80061; 80306; 82075; 82248; 83036; 84443; 85025; 99285